=== PATIENT | female | born 1965 | race Caucasian/White ===

== ENCOUNTER → 2024-02-18 | Outpatient (CLI) | payer BC ==
[~2024-02-18] MED LIST: PREDNISONE20 MG PO; PRILOSEC10 MG PO; TOPROL XL 50MG50 MG PO
== END ==
LOC: MC.RAD 14:14
DX: Z12.31 Encounter for screening mammogram for malignant neoplasm of breast (principal)

== ENCOUNTER → 2024-03-14 | Outpatient (CLI) | payer BC | LOC: COL.RAD 09:52 | DX: R59.9 Enlarged lymph nodes, unspecified (principal) ==